=== PATIENT | male | born 1965 | race Caucasian/White ===

== ENCOUNTER 2017-09-04 19:50 | Emergency (ER) | payer OTHER ==
[~2017-09-04] VITALS: Ht 182.9 cm; Wt 74.8 kg
[2017-09-04] MEDS ORDERED: VALIUM5 MG PO (21:19)
[2017-09-04] MEDS ORDERED: MOBIC15 MG PO (21:19)
[2017-09-04 21:38] VITALS: BP 109/74
== END 2017-09-04 21:39 | disposition home or self-care (01) ==
LOC: ER 19:50
DX: S16.1XXA Strain of muscle, fascia and tendon at neck level, initial encounter (principal); E11.9 Type 2 diabetes mellitus without complications; X58.XXXA Exposure to other specified factors, initial encounter; Y92.89 Other specified places as the place of occurrence of the external cause; Y93.89 Activity, other specified; Y99.8 Other external cause status